=== PATIENT | female | born 1995 | race Two or more races ===

== ENCOUNTER → 2022-11-29 | Day surgery (SDC) | payer OTHER ==
--- NOTE | 2022-11-28 21:11 | NUR ---
SE RECIBE PTE FEMINA DE 27 ANOS DE EDAD, ALERTA Y ORIENTADA X3 QUIEN REFIERE TENER 11 SEMANAS DE EMBARAZO Y DESDE LAS 8PM APROXIMADAMENTE COMENZO CON UN SANGRADO PROFUSO Y DOLOR PELVICO. S/V ESTABLES SE UBICA.
--- NOTE | 2022-11-28 22:47 | NUR ---
SE LE ORIENTA PACIENTE SOBRE LAS ORDENES MEDICAS, REFIERE ENTENDER LAS MISMAS. SE LE DEANNA LAS MUETRAS Y SE LE REALIZA SONOGRAMA MASSIMO LAS ORDENES MEDICAS.
[~2022-11-29] VITALS: Ht 142.2 cm; Wt 59.0 kg
--- NOTE | 2022-11-29 07:15 | NUR ---
PTE ALERTA Y ORIENTADA X 3 ESFERAS EN COMPANIA DE FAMILIAR,EN LIZ CON BARANDAS ELEVADAS.NO REFIERE DOLOR,AREA DE VENOPUNCION PATENTE Y KARMA DE EDEMA CON FLUIDOS DE MANTEMINIENTO BAJANDO SIN DIFICULTAD,PENDIENTE A EVALUACION DE GERMAN.
== END | disposition home or self-care (01) ==
LOC: ER 11-28 20:21 → SEC-K 08:45 → ER 08:45 → O/R 08:45 → CIR.AMB 08:45 → EDSTATUS 09:00 → SEC-K 11:26 → O/R 11:26
PROVIDERS: ATTEND General Practice
DX: O02.1 Missed abortion (principal); O72.2 Delayed and secondary postpartum hemorrhage; Z20.822 Contact with and (suspected) exposure to COVID-19